=== PATIENT | male | born 1935 | race Caucasian/White ===

== ENCOUNTER 2017-05-29 18:54 | Emergency (ER) | payer OTHER ==
[~2017-05-29] VITALS: Ht 175.3 cm; Wt 68.0 kg
[2017-05-29 19:05] VITALS: BP 118/74
--- NOTE | 2017-05-29 19:05 | NUR ---
81/M BIBA S/P MECHANICAL FALL IN THE DRIVEWAY WHILE PICKING UP MAIL. DENIES ANY PAIN AT THIS TIME, BUT STATES DISCOMFORT TO LT HEMATOMA, DENIES LOC,AOX4, GCS15, DENIES ANY VISUAL DISTURBANCES, PT REPORTS HE REMEMBERS THE FALL AND STATES "HE LOST BALANCE". HEMATOMA/LAC ON LT FOREHEAD NOTED, SKIN TEARS ON LT HAND AND LT WRIST, BLEEDING CONTROLLED AT THIS TIME. 20RR EVEN AND UNLABORED, ALL LUNG SOUNDS CBTA. 74 HR EVEN AND REGULAR. DENIES CP/SOB. PMH: TIA, HTN, COPD, BLADDER CA. RX: ASA, AMLODIPINE, SPIRIVA,
--- NOTE | 2017-05-29 19:20 | NUR ---
Patient being evaluated by Dr. Schroeder at bedside.
--- NOTE | 2017-05-29 20:01 | NUR ---
PT TAKEN TO CT
[2017-05-29 20:36] LABS: BASOPHILS # (AUTO) 0.1 K/uL (0.00-0.22); BASOPHILS % (AUTO) 2.1 % (0.0-2.0); EOSINOPHILS # (AUTO) 0.1 K/uL (0-0.4); HEMATOCRIT 42.6 % (36-52); HEMOGLOBIN 14.2 g/dL (12.0-18.0); LYMPHOCYTES # (AUTO) 0.5 K/uL (2.0-11.5); LYMPHOCYTES % (AUTO) 8.8 % (20.5-51.1); MEAN CORPUSCULAR HEMOGLOBIN 33 pg (27-31); MEAN CORPUSCULAR HGB CONC 33 g/dL (33-37); MEAN CORPUSCULAR VOLUME 99 fL (80-94); MONOCYTES # (AUTO) 0.7 K/uL (0.8-1.0); MONOCYTES % (AUTO) 12.2 % (1.7-9.3); NEUTROPHILS # (AUTO) 4.7 K/uL (1.8-7.7); NEUTROPHILS % (AUTO) 74.9 % (42.2-75.2); PLATELET COUNT (AUTO) 191 K/uL (140-450); RED BLOOD CELL COUNT(AUTO) 4.32 MIL/uL (4.20-6.10); RED CELL DISTRIBUTION WIDTH 14.4 % (11.6-13.7); WHITE BLOOD COUNT (AUTO) 6.1 K/uL (4.8-10.8)
[2017-05-29] MEDS ORDERED: LIDOCAINE 1% ***ER ONLY *** 50 ML ONE (20:47)
[2017-05-29 20:50] LABS: ANION GAP 19.4 (8-16); CARBON DIOXIDE 18.4 mmol/L (21-32); CHLORIDE 110 mmol/L (98-107); CREATININE 1.9 mg/dL (0.7-1.3); GLUCOSE 97 mg/dL (74-106); POTASSIUM 3.8 mmol/L (3.5-5.1); SODIUM SERUM 144 mmol/L (136-145); UREA NITROGEN, BLOOD 25 mg/dL (7-18)
[2017-05-29 20:52] LABS: PROTHROMBIN TIME 9.2 secs (10.8-13.4)
[2017-05-29 20:57] LABS: ALBUMIN 3.4 g/dL (3.4-5.0); ASPARTATE AMINOTRANSFERASE 19 U/L (15-37); TOTAL BILIRUBIN 0.7 mg/dL (0.0-1.0)
--- NOTE | 2017-05-29 21:00 | NUR ---
VSS, PT STABLE, RESTING COMFORTABLY, ALL NEEDS MET AT THIS TIME
[2017-05-29] MEDS ORDERED: NACL 0.9% 1,000 ML IV ONE (21:15)
--- NOTE | 2017-05-29 22:30 | NUR ---
ER MD CISNEROS PERFORMING LACERATION REPAIR AT BEDSIDE
--- NOTE | 2017-05-29 23:30 | NUR ---
IV removed, catheter intact and site benign. Applied folded 4x4 gauze and tape to stop bleeding.
[2017-05-29] MEDS ORDERED: BACITRACIN OINT 500 UNITS/GM PKT TP ONE (23:33)
[2017-05-29 23:50] VITALS: BP 129/81
--- NOTE | 2017-05-29 23:50 | NUR ---
DPatient discharged with v/s stable. Written and verbal after care instructions given and explained. Patient verbalized understanding. Ambulatory with steady gait. All questions addressed prior to discharge. Advised to follow up with PMD.
== END 2017-05-29 23:50 | disposition home or self-care (01) ==
LOC: MED 18:54
DX: S61.412A Laceration without foreign body of left hand, initial encounter (principal); S01.81XA Laceration without foreign body of other part of head, initial encounter; R94.31 Abnormal electrocardiogram [ECG] [EKG]; W18.30XA Fall on same level, unspecified, initial encounter; Y93.89 Activity, other specified; Y92.89 Other specified places as the place of occurrence of the external cause; Y99.8 Other external cause status
CPT/HCPCS: 12001; 12013; 36415; 70450; 70486; 73130; 80053; 84484; 85025; 85610; 90471; 90715; 93005; 96360; 99285; J2001; J7030

== ENCOUNTER 2017-05-31 08:44 | Emergency (ER) | payer OTHER ==
[~2017-05-31] VITALS: Ht 175.3 cm; Wt 71.3 kg
[2017-05-31 08:56] VITALS: BP 123/63
--- NOTE | 2017-05-31 08:59 | NUR ---
Patient ambulated to bed 11. RN evaluating patient at bedside.
--- NOTE | 2017-05-31 09:00 | NUR ---
81 M BIB FOR WOUND RECHECK TO RIGHT HAND AND RIGHT EYEBROW; SUTURES DRY CLEAN AND INTACT; NO DISCHARGE NOTED; ecchymosis NOTED TO RIGHT HAND, RIGHT EYEBROW, AND RIGHT ELBOW; SKIN IS PINK/WARM/DRY; AOX4 WITH EVEN AND STEADY GAIT; RR ARE EVEN AND UNLABORED; PT DENIES ANY FEVER, CP, SOB, OR COUGH AT THIS TIME; PATIENT STATES PAIN OF 0/10 AT THIS TIME; VSS; PATIENT POSITIONED FOR COMFORT; HOB ELEVATED; BED DOWN. ER MD MADE AWARE OF PT STATUS.
[2017-05-31 09:30] VITALS: BP 121/97
--- NOTE | 2017-05-31 09:30 | NUR ---
Patient discharged with v/s stable. Written and verbal after care instructions given and explained. Patient verbalized understanding. Ambulatory with to car. All questions addressed prior to discharge. Advised to follow up with PMD.
== END 2017-05-31 09:30 | disposition home or self-care (01) ==
LOC: MED 08:44
DX: S01.81XD Laceration without foreign body of other part of head, subsequent encounter (principal); S61.412D Laceration without foreign body of left hand, subsequent encounter; J44.9 Chronic obstructive pulmonary disease, unspecified; I10 Essential (primary) hypertension; X58.XXXD Exposure to other specified factors, subsequent encounter
CPT/HCPCS: 99281